=== PATIENT | female | born 1955 | race Caucasian/White ===

== ENCOUNTER 2017-11-09 07:55 | Outpatient (CLI) | payer BC | END 2017-11-09 07:56 | disposition home or self-care (01) | LOC: BICMAMMO 07:55 | PROVIDERS: ATTEND Internal Medicine | DX: Z12.31 Encounter for screening mammogram for malignant neoplasm of breast (principal); Z13.820 Encounter for screening for osteoporosis; M81.0 Age-related osteoporosis without current pathological fracture; M85.88 Other specified disorders of bone density and structure, other site; Z80.3 Family history of malignant neoplasm of breast | CPT/HCPCS: 77063; 77067; 77080 ==

== ENCOUNTER 2018-10-25 13:05 | Outpatient (CLI) | payer BC ==
--- NOTE | 2018-10-25 15:16 | RAD ---
LEFT FOOT THREE VIEWS: HISTORY: Pain and swelling. COMPARISON: None. FINDINGS: Prior bunionectomy changes of the great toe with incomplete arthrodesis of the great toe tarsometatar peña joint. There is lucency surrounding the intermetatarsal screw, between the fist and second metat arsals bases, as well as around the head of the retrograde arthrodesis screw through the great toe me tatarsal base and the intermediate cuneiform. 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 IMPRESSION: 1. Perihardware lucency, as described, with advanced degenerative change to the great toe tarsometat arsal joint, with incomplete union of the arthrodesis. 2. 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 POS: CET
== END 2018-10-25 13:06 | disposition home or self-care (01) ==
LOC: BICRAD 13:05
PROVIDERS: ATTEND Internal Medicine
DX: M25.572 Pain in left ankle and joints of left foot (principal); M19.072 Primary osteoarthritis, left ankle and foot; Z98.890 Other specified postprocedural states

== ENCOUNTER 2020-02-01 07:34 | Outpatient (CLI) | payer BC, OTHER ==
[2020-02-01 14:33] LABS: #Basophils 0.1 10x3/uL (0.0-0.2); #Eosinphils 0.2 10x3/uL (0.0-0.5); #Monocytes 0.8 10x3/uL (0.0-1.1); #Neutrophils 3.4 10x3/uL (1.5-8.4); %Eosinophils 4.1 % (0.0-6.0); %Monocytes 13.4 % (0.0-10.0); %Neutrophils 58.2 % (40.0-75.0); Hemoglobin 14.1 g/dL (12.0-16.0); Mean Corpuscular HGB CONC 33.1 G/DL (32.0-36.0); Mean Corpuscular Hemoglobin 31.7 PG (27.0-33.0); Mean Corpuscular Volume 95.7 fl (80.0-100.0); Mean Platelet Volume 10.4 fl (7.4-10.4); Platelet Count 248 10x3/uL (130-400); RBC Distribution Width 13.4 % (11.5-14.5); Red Blood Cell (RBC) Count 4.45 10x6/uL (3.90-5.20); White Blood Cell (WBC) Count 5.9 10x3/uL (4.5-11.0)
[2020-02-02 12:52] LABS: SARS-CoV-2 MS2 Positive; SARS-CoV-2 N Gene Negative; SARS-CoV-2 S Gene Negative; SARS-CoV-2 by NAA Not Detected (NotDetected); SARS-CoV-2 orf1ab Negative
== END 2020-02-01 07:35 | disposition home or self-care (01) ==
LOC: LABBT 07:34
PROVIDERS: ATTEND Orthopaedic Surgery Hand Surgery
DX: Z01.818 Encounter for other preprocedural examination (principal); M65.4 Radial styloid tenosynovitis [de Quervain]; Z20.828 Contact with and (suspected) exposure to other viral communicable diseases
CPT/HCPCS: 85025; 87635; 93005; 93010; U0003

== ENCOUNTER 2020-02-08 09:04 | Outpatient (CLI) | payer BC ==
[2020-02-09 14:45] LABS: SARS-CoV-2 MS2 Positive; SARS-CoV-2 N Gene Negative; SARS-CoV-2 S Gene Negative; SARS-CoV-2 by NAA Not Detected (NotDetected); SARS-CoV-2 orf1ab Negative
== END 2020-02-08 09:05 | disposition home or self-care (01) ==
LOC: LABBT 09:04
PROVIDERS: ATTEND Orthopaedic Surgery Hand Surgery
DX: Z01.818 Encounter for other preprocedural examination (principal); M65.4 Radial styloid tenosynovitis [de Quervain]; Z20.828 Contact with and (suspected) exposure to other viral communicable diseases
CPT/HCPCS: 87635; U0003

== ENCOUNTER 2020-02-10 11:58 | Day surgery (SDC) | payer BC ==
[2020-02-03 12:26] VITALS: BMI 21.6
[~2020-02-10 11:58] MED LIST: Dexamethasone 20 MG/5 ML VIAL ONE; Ketorolac Tromethamine 30 MG/ML VIAL ONE; Lidocaine 1% PF 5 ML VIAL ONE; Ondansetron PF 4 MG/2 ML Vial ONE; PROPOFOL 200 MG/20 ML VIAL ONE
[2020-02-10] MEDS ORDERED: Fentanyl 100 MCG/2 ML VIAL ONE (12:58)
[2020-02-10] MEDS ORDERED: Midazolam HCl 2 mg/2 ml Vial ONE (12:58)
[2020-02-10] MEDS ORDERED: Betamet Acet/Betamet Na Ph 30 MG/5 ML VIAL ONE (13:14)
[2020-02-10] MEDS ORDERED: Bacitracin Zinc Ointment 30 gm TUBE ONE (13:14)
[2020-02-10] MEDS ORDERED: Bupivacaine PF 0.5% 30 ML VIAL ONE (13:14)
[2020-02-10] MEDS ORDERED: Sodium Chloride 0.9% 10 ML ONE (13:31)
--- NOTE | 2020-02-13 09:07 | OP ---
DATE OF PROCEDURE: 02/10/2020 PREOPERATIVE DIAGNOSIS: Right first dorsal compartment tenosynovitis with de Quervain. POSTOPERATIVE DIAGNOSES: Right first dorsal compartment tenosynovitis with de Quervain with separate compartments and mild of the abductor pollicis longus. PROCEDURE PERFORMED: Release of first dorsal compartment. SPECIMEN: None. TOURNIQUET TIME: 10 minutes. ESTIMATED BLOOD LOSS: 5 mL. DESCRIPTION OF PROCEDURE: After successful general endotracheal anesthesia, time-out was done appropriately and the right identified. It was prepped and draped. We then gave the patient 10 mL of 0.5% Marcaine after outlining zigzag incision centered on the first dorsal compartment. Incision was entered after the limb was exsanguinated and tourniquet inflated. Carried through skin and subcutaneous tissue. Then bluntly dissected to visualize the superficial radial nerve and its branch, protected it from the center field. Identified the retinaculum, released it at the junction of its dorsal 1/3 and its central 1/3. Then, we found that there was a separate compartment for the extensor pollicis brevis and only mild tenosynovitis of the abductor pollicis longus. A small tenosynovectomy was accomplished. We released the tourniquet, obtained hemostasis. Irrigated the area. Placed 3 mL of Celestone in the wound and closed it with simple interrupted mattress suture. Bulky dressing was applied along with a small 3-inch thumb spica splint, and the patient left the operating room without evidence of anesthetic or operative complication. Job ID: [id number]
== END 2020-02-10 15:45 | disposition home or self-care (01) ==
LOC: SDC 11:58
PROVIDERS: ATTEND Orthopaedic Surgery Hand Surgery
PROC: 0LN50ZZ Release Right Lower Arm and Wrist Tendon, Open Approach (ICD-10-PCS; principal; 2020-02-10)
DX: M65.4 Radial styloid tenosynovitis [de Quervain] (principal); M06.9 Rheumatoid arthritis, unspecified; M81.0 Age-related osteoporosis without current pathological fracture; E78.5 Hyperlipidemia, unspecified; I10 Essential (primary) hypertension; F17.200 Nicotine dependence, unspecified, uncomplicated; Z79.899 Other long term (current) drug therapy
CPT/HCPCS: J0690; J0702; J1100; J1885; J2250; J2405; J2704; J3010; J3370; S0020

== ENCOUNTER 2020-11-14 07:58 | Outpatient (CLI) | payer BC | END 2020-11-14 07:59 | disposition home or self-care (01) | LOC: BICMAMMO 07:58 | PROVIDERS: ATTEND Obstetrics & Gynecology | DX: Z12.31 Encounter for screening mammogram for malignant neoplasm of breast (principal); M81.0 Age-related osteoporosis without current pathological fracture; Z80.3 Family history of malignant neoplasm of breast | CPT/HCPCS: 77063; 77067; 77080 ==

== ENCOUNTER 2021-03-18 15:42 | Outpatient (CLI) | payer BC | END 2021-03-18 15:43 | disposition home or self-care (01) | LOC: BICRAD 15:42 | PROVIDERS: ATTEND Chiropractor | DX: M25.562 Pain in left knee (principal) ==

== ENCOUNTER 2021-08-01 06:53 | Outpatient (CLI) | payer BC | END 2021-08-01 06:54 | disposition home or self-care (01) | LOC: BICULT 06:53 | PROVIDERS: ATTEND Physician Assistant | DX: R79.89 Other specified abnormal findings of blood chemistry (principal) | CPT/HCPCS: 76705 ==

== ENCOUNTER 2021-11-15 08:06 | Outpatient (CLI) | payer MEDICARE | END 2021-11-15 08:07 | disposition home or self-care (01) | LOC: BICMAMMO 08:06 | PROVIDERS: ATTEND Internal Medicine | DX: Z12.31 Encounter for screening mammogram for malignant neoplasm of breast (principal); M81.0 Age-related osteoporosis without current pathological fracture; Z80.3 Family history of malignant neoplasm of breast | CPT/HCPCS: 77063; 77067; 77080 ==

== ENCOUNTER 2022-03-20 07:59 | Outpatient (CLI) | payer MEDICARE, OTHER | END 2022-03-20 08:00 | disposition home or self-care (01) | LOC: BICRAD 07:59 | PROVIDERS: ATTEND Internal Medicine Rheumatology | DX: M25.532 Pain in left wrist (principal); M79.642 Pain in left hand; M19.032 Primary osteoarthritis, left wrist ==

== ENCOUNTER 2022-05-16 07:27 | Outpatient (CLI) | payer MEDICARE, OTHER ==
[2022-05-16 08:20] LABS: #Basophils 0.1 10x3/uL (0.0-0.2); #Eosinphils 0.1 10x3/uL (0.0-0.5); #Monocytes 0.7 10x3/uL (0.0-1.1); #Neutrophils 4.1 10x3/uL (1.5-8.4); %Eosinophils 1.8 % (0.0-6.0); %Lymphocytes 19.8 % (18.0-47.0); %Monocytes 10.7 % (0.0-10.0); %Neutrophils 66.5 % (40.0-75.0); Hemoglobin 13.2 g/dL (12.0-15.5); Mean Corpuscular HGB CONC 33.1 g/dL (32.0-36.0); Mean Corpuscular Hemoglobin 31.8 pg (27.0-33.0); Mean Corpuscular Volume 96.1 fl (81.6-98.3); Mean Platelet Volume 10.5 fl (7.4-10.4); Platelet Count 232 10x3/uL (150-450); RBC Distribution Width 14.4 % (11.5-14.5); Red Blood Cell (RBC) Count 4.15 10x6/uL (3.90-5.03); White Blood Cell (WBC) Count 6.2 10x3/uL (3.5-10.5)
== END 2022-05-16 07:28 | disposition home or self-care (01) ==
LOC: LABBT 07:27
PROVIDERS: ATTEND Orthopaedic Surgery Hand Surgery
DX: Z01.812 Encounter for preprocedural laboratory examination (principal); M65.4 Radial styloid tenosynovitis [de Quervain]
CPT/HCPCS: 85025

== ENCOUNTER 2022-05-19 11:56 | Day surgery (SDC) | payer MEDICARE ==
[2022-05-15 12:07] VITALS: BMI 21.1
[2022-05-19] MEDS ORDERED: Bacitracin Zinc Ointment 30 gm TUBE ONE (12:26)
[2022-05-19] MEDS ORDERED: Bupivacaine PF 0.5% 30 ML VIAL ONE (12:26)
[2022-05-19] MEDS ORDERED: Betamet Acet/Betamet Na Ph 30 MG/5 ML VIAL ONE (12:28)
[2022-05-19] MEDS ORDERED: fentaNYL PF 100 MCG/2 ML SYRINGE ONE (12:29)
[2022-05-19] MEDS ORDERED: Sodium Chloride 0.9% 100 ML ONE (13:34)
[2022-05-19] MEDS ORDERED: CEFAZOLIN 2 GM VIAL ONE (13:34)
[2022-05-19] MEDS ORDERED: ePHEDrine 50 MG/ML VIAL ONE (13:48)
[2022-05-19] MEDS ORDERED: PROPOFOL 200 MG/20 ML VIAL ONE (13:48)
[2022-05-19] MEDS ORDERED: Ondansetron PF 4 MG/2 ML Vial ONE (13:48)
[2022-05-19] MEDS ORDERED: PHENYLEPHRINE-NS 100 MCG/ML 10 ML SYRINGE ONE (13:48)
[2022-05-19] MEDS ORDERED: Lidocaine 1% PF 5 ML VIAL ONE (13:48)
[2022-05-19] MEDS ORDERED: Ketorolac Tromethamine 30 MG/ML VIAL ONE (14:45)
== END 2022-05-19 16:16 | disposition home or self-care (01) ==
LOC: SDC 11:56
PROVIDERS: ATTEND Orthopaedic Surgery Hand Surgery
PROC: 0LB60ZZ Excision of Left Lower Arm and Wrist Tendon, Open Approach (ICD-10-PCS; principal; 2022-05-19)
DX: M65.4 Radial styloid tenosynovitis [de Quervain] (principal); M06.9 Rheumatoid arthritis, unspecified; M81.0 Age-related osteoporosis without current pathological fracture; E78.5 Hyperlipidemia, unspecified; I10 Essential (primary) hypertension; Z79.899 Other long term (current) drug therapy
CPT/HCPCS: 88304; J0702; J1885; J2405; J2704; J3490; S0020

== ENCOUNTER 2022-11-17 08:08 | Outpatient (CLI) | payer MEDICARE, OTHER | END 2022-11-17 08:09 | disposition home or self-care (01) | LOC: BICMAMMO 08:08 | PROVIDERS: ATTEND Internal Medicine | DX: Z12.31 Encounter for screening mammogram for malignant neoplasm of breast (principal); M81.0 Age-related osteoporosis without current pathological fracture; M85.88 Other specified disorders of bone density and structure, other site; Z80.3 Family history of malignant neoplasm of breast | CPT/HCPCS: 77063; 77067; 77080 ==

== ENCOUNTER 2024-11-21 07:52 | Outpatient (CLI) | payer MEDICARE | END 2024-11-21 07:53 | disposition home or self-care (01) | LOC: BICMAMMO 07:52 | PROVIDERS: ATTEND Internal Medicine Endocrinology, Diabetes & Metabolism | DX: Z12.31 Encounter for screening mammogram for malignant neoplasm of breast (principal); M81.0 Age-related osteoporosis without current pathological fracture; Z80.3 Family history of malignant neoplasm of breast | CPT/HCPCS: 77063; 77067; 77080 ==